=== PATIENT | male | born 1970 | race Caucasian/White ===

== ENCOUNTER 2020-02-01 11:11 | Outpatient (CLI) | payer BC, SELFPAY ==
--- NOTE | ~2020-02-01 | XR_ITS ---
EXAMINATION: XR_CERV2-3V_CR EXAM DATE: 02/01/2020 11:34 INDICATION: Cervical radiculopathy, right shoulder pain. TECHNIQUE: Cervical spine frontal, lateral, open-mouth odontoid projections. Comparison is made to shaye examination from 07/09/2016. FINDINGS: There are disc replacements at C5-6 and 6-7. Hardware is in position. There is mild to mod erate cervical arthropathy. The vertebral bodies are aligned in the AP dimension. Prevertebral soft t issue and pre-dens space are within normal limits. The odontoid process is intact. The lateral po s of C1 line up with C2. Right minimal cervical levoscoliosis. Compared to previous exam, difficult to appreciate any significant interval change. IMPRESSION: 1. Mild to moderate cervical spondylosis. 2. Disc replacements intact. Reviewed, dictated and finalized at location A.
== END 2020-02-01 11:12 | disposition home or self-care (01) ==
PROVIDERS: PCP Family Medicine; Visit Provider Physician Assistant Medical
DX: M47.22 Other spondylosis with radiculopathy, cervical region (principal)
CPT/HCPCS: 72040

== ENCOUNTER 2025-09-09 01:56 | Emergency (ER) | payer OTHER, SELFPAY ==
--- NOTE | ~2025-09-09 | CT_ITS ---
EXAMINATION: CT thoracic spine wo con DATE: 09/09/2025 03:57 INDICATION: Back pain. TECHNIQUE: Computed tomography (CT) of the thoracic spine was performed without intravenous contrast. Automated exposure control and iterative reconstruction technique were employed. The dose-length product was 1466.07 mGy-cm. COMPARISON: None FINDINGS: There is diffuse hepatic steatosis. There is a 3.8 cm mass in left kidney. There are 2 stones in left kidney measuring up to 5 mm. Alignment is normal. There are disc replacements at C5-C6 and C6-C7. There is mild chronic anterior wedging of multiple vertebral bodies. There is mildly decreased disc height at many levels. There is moderately decreased disc height at T3-T4 and T4-T5. There is multilevel severe facet joint osteoarthritis. There is mild neural foraminal stenosis at many levels. On the right, there is moderate neural foraminal stenosis from T1-T2 through T8-T9. On the left, there is moderate neural foraminal stenosis from T1-T2 through T8-T9. There is mild central canal stenosis at T4-T5, T6-T7, T7-T8, T8-T9, T9-T10, T10-T11, T11-T12, and T12-L1. IMPRESSION: 1. 3.8 cm left kidney mass, which may be a hemorrhagic cyst or renal cell carcinoma. Abdomen CT without and with contrast is recommended. 2. Moderate thoracic spondylosis. Reviewed, dictated and finalized at location E. RBARIC TECHNOLOGIST IMPRESSION: 1. 3.8 cm left kidney mass, which may be a hemorrhagic cyst or renal cell carci noma. Abdomen CT without and with contrast is recommended. 2. Moderate thoracic spondylosis.
--- NOTE | ~2025-09-09 | XR_ITS ---
Examination: XR chest 1V portable Clinical History: pain upper back Comparison: None Technique: Portable AP Findings: Heart size upper limit of normal in size. Lungs clear. No acute bony abnormality. IMPRESSION: 1. No acute cardiopulmonary findings given portable technique. Reviewed, dictated and finalized at location R. CTOR CHILD
--- NOTE | ~2025-09-09 | CT_ITS ---
CTA CHEST ABDOMEN PELVIS CLINICAL HISTORY: Dissection . COMPARISON: Chest x-ray today TECHNIQUE: Helical CT performed from thoracic inlet to symphysis pubis 100 mL Omnipaque 350 Coronal, sagittal reformats. Multiplanar MIPS CT images acquired with automatic exposure control for dose reduction DLP: 1312 mGy-cm FINDINGS: CHEST- Thoracic Aorta: No dissection. No aneurysm. Pulmonary arteries: Normal caliber. Lungs/Pleura: Clear. Heart: Unremarkable. Tracheobronchial tree: Patent. Nodes: No enlarged nodes. Bones: No acute bony abnormality. Soft tissues: Unremarkable. ABDOMEN/PELVIS- CTA Abdominal aorta: No aneurysm or dissection. Common iliac arteries: Patent. External iliac arteries: Patent. Hypogastric arteries: Patent. CFAs: Patent. Proximal visualized SFAs and profundas: Patent. Celiac: Patent. SMA: Patent. ANDRADE: Patent. Renal arteries: Patent. NON-CTA Liver: Steatosis. Gallbladder: Unremarkable. Spleen: Unremarkable. Pancreas: Unremarkable. Adrenal glands: Unremarkable. Kidneys: Right kidney- No hydronephrosis. No renal stones. Left kidney- No hydronephrosis. No renal stones. 4 cm upper pole exophytic enhancing lesion. Distal esophagus/stomach: Unremarkable. Small bowel loops: Normal caliber and wall thickness. Colon: Diverticula. Normal caliber and wall thickness. Normal RLQ appendix. Nodes: No enlarged nodes. Peritoneum: No ascites. No free air. Urinary bladder: Unremarkable. Prostate: Unremarkable. Bones: No acute bony abnormality. Soft tissues: Unremarkable. IMPRESSION: CHEST- 1. No acute cardiopulmonary findings. ABDOMEN/PELVIS- 1. No acute abdominopelvic findings. 2. 4 cm mass left kidney highly worrisome for malignancy. Reviewed, dictated and finalized at location R. GRINDER
[2025-09-09 02:08] VITALS: BP 154/97; PULSE 57; RESP 16; TEMP 36.9; O2SAT 100
--- NOTE | 2025-09-09 02:26 | ECG_ITS ---
Test Date: 2025-09-09 02:45:00 Measurements Intervals [place] Rate: 65 P: 38 [place]: 191 QRS: -1 QRSD: 99 T: 31 QT: 403 QTc: 420 Interpretive Statements SINUS RHYTHM LOW QRS VOLTAGE IN PRECORDIAL LEADS BASELINE ARTIFACT- I, II, III, AVR, AVL, AVF, V1-V5 BORDERLINE ECG No previous ECG available for comparison Electronically Signed On 09-09-2025 06:19:40 MEDICAL RECORD TRANSCRIBER by Skinny Mart D.O.
--- NOTE | 2025-09-09 02:29 | ED_ITS ---
HPI - Back Pain/Injury General Chief Complaint: Back Pain/Injury Stated Complaint: Back pain Time Seen by Provider: 09/09/25 02:15 Source: patient and family Mode of arrival: ambulatory Limitations: no limitations History of Present Illness HPI Narrative: Patient is a 55-year-old male presents to the emergency department accompanied by complaining of back pain. Patient points to the region around his T8/T9, notes that it is on both sides and wraps around his chest, feels like a burning sensation, denies it being uncomfortable in the midline, notes that the pain started sporadically 1 hour ago and woke him up from sleep, denies any history is in the past, denies any precipitating injuries, went to bed feeling well, pain is a constant. Patient CPB had some slight nausea last night for going to bed. Patient denies any fevers. Patient denies use of blood thinners. Patient denies any focal weakness or numbness. Patient denies any dysuria, urinary frequency, urinary urgency, difficulty breathing, cough, rash. Related Data Home Medications ?Medication ?Instructions ?Recorded ?Confirmed ?Last Taken ?Type cetirizine 10 mg tablet (Zyrtec) 10 mg PO DAILY PRN 07/01/25 Unknown History fluticasone propionate 50 1 spray intranasal DAILY 08/3007/01/25 Unknown History mcg/actuation nasal spray,suspension (Flonase Allergy Relief) Allergies Allergy/AdvReac Type Severity Reaction Status Date / Time atorvastatin AdvReac Intermediate Muscle Pain Verified 07/01/25 08:37 adhesive AdvReac Rash Verified 07/01/25 08:37 Review of Systems 2 Review of Systems: A 10 system review of systems was completed on the patient and is negative except for what is stated in the HPI. Nursing and ancillary documentation was reviewed. [facility] Past Medical History Medical History Vaccine for mydggglijd-kpjrerb-tylajiynw, combined Screening for thyroid disorder Screening for prostate cancer Screening for lipid disorders Pituitary tumor Carpal tunnel syndrome Surgical History Surgical History History of eye surgery History of nasal surgery Family History Family History Father Hypertension Family history of kidney disease Family history of malignant neoplasm of kidney Heart disease Mother COPD (chronic obstructive pulmonary disease) Heart disease Sibling History of kidney cancer Other Family history of arthritis Family history of gout Social History Social History Smoking status: Never smoker Second hand tobacco smoke exposure: Yes Alcohol intake: current Substance use: never Substance use type: does not use Lack of Transportation: No Lack of Food: Never True Current Housing: I Have Housing Concerned About Future Housing: No Difficulty Paying Gas/Electric Bills: No Difficulty Paying for Meds: No Currently Unemployed: No Education: High School Diploma/GED Difficulty w/ Childcare or Family Care: No Living arrangements: with family Occupation/Education: occupation 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 Gender identity (if verbalized by the patient): Male Exam 2 Narrative: CONST: No acute distress. Well nourished. HENMT: Head is normocephalic and atraumatic. Moist mucous membranes. No posterior oropharynx erythema. EYES: No scleral icterus. No conjunctival injection or pallor. PERRL. NECK: No meningeal signs. RESP: Able to speak in full sentences. Normal respiratory effort. CTAB. CARDIO: Regular rate. Regular rhythm. 2+ DP and radial pulses bilaterally. GI: Nondistended. No tenderness to palpation. Soft. : No CVA tenderness to palpation. SKIN: No rashes or lesions noted on exposed skin. NEURO: Oriented x3. Moves all extremities. No focal neurological deficits. EXTREM/MSK/BACK: No pedal edema. No midline vertebral tenderness to palpation or palpable step-offs. Right parathoracic muscle spasm. PSYCH: Normal affect. Course Vital Signs Vital signs: Vital Signs Temperature 98.4 F 09/09/25 02:08 Pulse Rate 57 L 09/09/25 02:08 Respiratory Rate 16 09/09/25 02:08 Blood Pressure 154/97 H 09/09/25 02:08 Pulse Oximetry 100 09/09/25 02:08 Temperature 98.4 F 09/09/25 02:08 Pulse Rate 57 L 09/09/25 02:08 Respiratory Rate 16 09/09/25 02:08 Blood Pressure 154/97 H 09/09/25 02:08 Pulse Oximetry 100 09/09/25 02:08 [facility] Narrative Medical decision making narrative: Patient presents with the above complaint. Initial vitals are remarkable for no significant abnormalities. Physical examination as noted above. Plan discussed: Laboratory analysis, EKG, chest x-ray, continues cardiac monitoring, continuous pulse oximetry, Valium, Toradol, IV fluids. Patient still having a lot of persistent discomfort despite medications, further pain medications ordered. Shared decision making performed patient regarding further imaging including a CTA dissection protocol and CT of thoracic spine and patient agrees to plan for further imaging pain medications and reassess. Patient's symptoms do appear to be most consistent with muscle spasm patient does note improvement when stretching his right arm over his head which may be stretching the parathoracic muscles on the right side were the most significant muscle spasm appears to be. CT of the thoracic spine preliminary report reveals no acute fracture involving the thoracic spine. CT a of the chest abdomen pelvis preliminary report reveals no acute process within the chest, no evidence of acute aortic syndrome. No acute intra- abdominal process. Hepatic steatosis. 3.7 cm solid-appearing left upper pole renal lesion highly concerning for malignancy. Urology consultation/renal protocol MRI recommended. On reassessment patient is resting comfortably appearing in no acute distress, notes that his pain is well controlled at this time, patient informed of the results and the concerning left renal lesion, shared decision making performed patient in which he was offered a period of observation and Urology consultation for intractable pain however patient notes that his pain is well enough controlled and he would rather go home with pain medications and follow-up to Urology with strict return precautions. The patient has remained stable throughout the entire ED visit. Counseled patient regarding diagnostic results and potential diagnosis. Anticipatory guidance provided. Patient instructed to follow up with Urology in the next 2-3 days. Patient counseled on: false reassurance from an emergency department evaluation; no current evidence of a medical emergency; return immediately for any new, recurrent, worsening, concerning, or refractory symptoms. Patient prescribed [place] and Flexeril. Prescription sent to preferred pharmacy. Medications discussed with patient. Additional verbal and printed discharge instructions were given and discussed with the patient. Patient verbally acknowledges understanding of condition and discharge instructions. All questions were answered to the patient's satisfaction. Patient is in agreement with the plan of care. The patient is stable for discharge and was discharged without incident. Differential Diagnosis Differential Diagnosis: Muscle spasm, musculoskeletal strain, GERD, costochondritis, pathologic fracture, shingles, ACS, aortic dissection, pneumonia, rhabdomyolysis, radiculopathy. Medical Records I have reviewed the following patient records and this information was taken into consideration when formulating the assessment and plan.: previous ER visits Lab Data MDM Lab Attestation statement: I personally reviewed the patient's lab results. Lab results narrative: CBC reveals no significant abnormalities. Coags are within normal limits. D- dimer is 0.33. CMP reveals a BUN of 25, glucose 116. Total creatine kinase is 204. Lipase 67. Troponin is less than 0.012. Magnesium is 2.3. 09/09/25 02:38 09/09/25 02:38 Labs: Lab Results 09/09/25 Range/Units 02:38 WBC 6.4 (4.5-10.0) K/mm3 RBC 5.07 (4.6-6.20) M/mm3 Hgb 15.1 (14.0-18.0) g/dL Hct 42.9 (42.0-52.0) % MCV 84.6 (80-100) fl MCH 29.8 (26-34) pg MCHC 35.2 (32-36) g/dl RDW 13.1 (11.5-14.5) % Plt Count 189 (150-375) k/mm3 MPV 9.4 (7.4-10.4) fl Immature Gran % (Auto) 0.3 (0-0.5) % Neut % (Auto) 65.1 (45.5-73.1) % Lymph % (Auto) 21.4 (18.3-44.2) % Coal % (Auto) 8.3 (2.6-8.5) % Eos % (Auto) 4.4 (0-4.4) % Baso % (Auto) 0.5 (0.2-1.2) % Lymph # (Auto) 1.36 (0.9-3.2) K/mm3 Coal # (Auto) 0.5 (0.1-0.6) K/mm3 Eos # (Auto) 0.3 (0-0.3) K/mm3 Baso # (Auto) 0.0 (0.0-0.1) K/mm3 Abs Immat Gran (auto) 0.02 (0.00-0.031) K/mm3 Absolute Neuts (auto) 4.1 (1.3-6.7) K/mm3 Absolute Nucleated RBC 0.000 (0.0-0.012) K/mm3 Nucleated RBC % 0.0 (0.0-0.2) % PT 12.1 (11.1-14.7) Seconds INR 0.9 APTT 23.6 (22.3-36.8) Seconds D-Dimer 0.33 (<0.48) ug/mL Sodium 137 (137-145) mmol/L Potassium 3.8 (3.4-5.0) mmol/L Chloride 102 (98-107) mmol/L Carbon Dioxide 29 (22-30) mmol/L Anion Gap 6 (4-12) mmol/L BUN 25 H (9-20) mg/dL Creatinine 1.23 (0.7-1.3) mg/dL Estim Creat Clear Calc 73 ml/min Estimated GFR > 60 (59 - ) Glucose 116 H (65-110) mg/dL Calcium 9.5 (8.4-10.2) mg/dL Magnesium 2.3 (1.6-2.3) mg/dL Total Bilirubin 0.6 (0.2-1.3) mg/dL AST 36 (17-59) U/L ALT 42 (6-50) U/L Alkaline Phosphatase 59 (38-126) U/L Total Creatine Kinase 204 H (55-170) U/L Troponin I < 0.012 (0.000-0.034) ng/mL Total Protein 7.5 (6.3-8.2) g/dL Albumin 4.6 (3.5-5.1) g/dL Lipase 67 (23-300) U/L Imaging Data Attestation: I personally reviewed and interpreted this imaging study as follows: My impression: No overt acute cardiopulmonary process, pending final radiology interpretation. ECG Data EKG #1: Attestation: I personally reviewed and interpreted this ECG as follows: ECG completion date: 09/09/25 ECG completion time: 02:45 Interpretation: Rate of 65, rhythm is sinus rhythm, axis is normal, QRS duration 99 milliseconds, NC interval of 191 milliseconds, no ST elevations, no ST depressions, no T-wave abnormalities, low voltage QRS in the precordial leads, QTC is 414 milliseconds. Discharge Plan Discharge Clinical Impression: Back pain, Lesion of left [place] kidney, Muscle spasm of back Patient Disposition: Home Condition: Stable Instructions: Antibiotic Form, Muscle Spasm (ED), Back Pain (ED) Additional Instructions: Follow-up promptly with Urology in the next few days, call to schedule an appointment, rest and stay well hydrated, take the muscle relaxers and pain medications as prescribed as needed, do not operate any heavy machinery or make any big decisions into you know how the medication makes you feel. Return immediately to the emergency department for any new or concerning symptoms especially any emergent concerns for life, limb, eyesight. Patient Language: [place] Irish Prescriptions: New hydrocodone-acetaminophen 7.5-325 mg tablet 1 tablet PO Q6H MDD 4 tabs PRN (Reason: pain) 3 Days Qty: 12 0RF cyclobenzaprine 10 mg tablet 10 mg PO Q8H PRN (Reason: muscle spasm) 10 Days Qty: 30 0RF No Action cetirizine [Zyrtec] 10 mg tablet 10 mg PO DAILY PRN fluticasone propionate [Flonase Allergy Relief] 50 mcg/actuation spray,suspension 1 spray intranasal DAILY Rx Instructions: administer into each nostril mupirocin [Centany] 2 % ointment 1 applic topical BID Qty: 50 1RF testosterone 20.25 mg/1.25 gram (1.62 %) gel in metered-dose pump 4 pump topical DAILY Qty: 450 1RF Rx Instructions: apply 2 pumps over max area of EACH upper arm and shoulder celecoxib 200 mg capsule See Rx Instructions .ROUTE .COMPLEX Qty: 180 1RF Dose Instruction: TAKE 1 CAPSULE BY MOUTH TWICE A DAY Rx Instructions: TAKE 1 CAPSULE BY MOUTH TWICE A DAY metformin 500 mg tablet extended release 24 hr See Rx Instructions .ROUTE .COMPLEX Qty: 90 1RF Dose Instruction: TAKE 1 TABLET BY MOUTH EVERY DAY WITH DINNER Rx Instructions: TAKE 1 TABLET BY MOUTH EVERY DAY WITH DINNER allopurinol 100 mg tablet See Rx Instructions .ROUTE .COMPLEX Qty: 180 1RF Dose Instruction: TAKE 2 TABLETS BY MOUTH EVERY DAY Rx Instructions: TAKE 2 TABLETS BY MOUTH EVERY DAY Follow-up/Referrals: Elizabeth Herrera MD [Physician, Urology] - 3 Days Ryne Figueroa MD [Primary Care Provider, Family Practice] Time of Disposition: 04:49
[2025-09-09] MEDS: diazePAM (*CRX) 5 MG TABLET PO (02:40)
[2025-09-09] MEDS: KETOROLAC 15 MG/ML VIAL (*BKC) IV PUSH (02:40)
[2025-09-09] MEDS: SODIUM CHLORIDE 0.9% IV 1,000 ML 150 ML IV CONT (02:40)
[2025-09-09 02:43] LABS: Hematocrit 42.9 % (42.0-52.0); Hemoglobin 15.1 g/dL (14.0-18.0); Immature Granulocyte Percent A 0.3 % (0-0.5); Lymphocytes Absolute Auto 1.36 K/mm3 (0.9-3.2); Mean Corpuscular HGB Conc 35.2 g/dl (32-36); Mean Corpuscular Hemoglobin 29.8 pg (26-34); Mean Corpuscular Volume 84.6 fl (80-100); Nucleated Red Blood Cells Absolute Auto 0.000 K/mm3 (0.0-0.012); Nucleated Red Blood Cells Perc 0.0 % (0.0-0.2); Platelet Count Result 189 k/mm3 (150-375); Red Blood Count 5.07 M/mm3 (4.6-6.20); White Blood Count 6.4 K/mm3 (4.5-10.0)
[2025-09-09 02:53] LABS: INR 0.9; Partial Thromboplastin Time 23.6 Seconds (22.3-36.8); Prothrombin Time 12.1 Seconds (11.1-14.7)
[2025-09-09 03:00] VITALS: BP 164/103; PULSE 55; RESP 20; TEMP 36.8; O2SAT 100
[2025-09-09 03:13] LABS: Alanine Aminotransferase 42 U/L (6-50); Albumin Level 4.6 g/dL (3.5-5.1); Alkaline Phosphatase 59 U/L (38-126); Anion Gap 6 mmol/L (4-12); Aspartate Amino Transferase 36 U/L (17-59); Bilirubin,Total 0.6 mg/dL (0.2-1.3); Blood Urea Nitrogen 25 mg/dL (9-20); Calcium 9.5 mg/dL (8.4-10.2); Carbon Dioxide 29 mmol/L (22-30); Chloride 102 mmol/L (98-107); Creatine Kinase 204 U/L (55-170); Estimated CRCL calculation 73 ml/min; Estimated Glomerular Filt Rate > 60; Glucose 116 mg/dL (65-110); Lipase 67 U/L (23-300); Magnesium 2.3 mg/dL (1.6-2.3); Potassium 3.8 mmol/L (3.4-5.0); Sodium 137 mmol/L (137-145); Total Protein 7.5 g/dL (6.3-8.2)
[2025-09-09 03:25] LABS: Troponin I < 0.012 ng/mL (0.000-0.034)
[2025-09-09] MEDS: HYDROmorphone HCL INJ (*CRX) 1 MG/ML SYR 0.5 MG IV PUSH (03:48)
[2025-09-09 04:00] VITALS: BP 151/95; PULSE 56; RESP 18; TEMP 36.7; O2SAT 100
[2025-09-09] MEDS: SODIUM CHLORIDE 0.9% IV 1,000 ML 999 ML IV CONT (04:04)
[2025-09-09 04:47] VITALS: BP 155/95; PULSE 60; RESP 18; O2SAT 100
== END 2025-09-09 04:57 | disposition home or self-care (01) ==
PROVIDERS: Emergency Provider Student in an Organized Health Care Education/Training Program; PCP Family Medicine
DX: M54.6 Pain in thoracic spine (principal); M62.830 Muscle spasm of back; N28.9 Disorder of kidney and ureter, unspecified; Z77.22 Contact with and (suspected) exposure to environmental tobacco smoke (acute) (chronic); R94.31 Abnormal electrocardiogram [ECG] [EKG]
CPT/HCPCS: 36415; 71045; 71275; 72128; 74174; 80053; 82550; 83690; 83735; 84484; 85025; 85380; 85610; 85730; 93005; 96361; 96374; 96375; 99284; A9270; J1171; J1885; J7030; Q9967